=== PATIENT | female | born 1985 | race African-American/Black ===

== ENCOUNTER 2017-09-16 11:40 | Emergency (ER) | payer MEDICAID ==
[~2017-09-16] VITALS: Ht 157.5 cm; Wt 64.0 kg
[~2017-09-16 11:40] MED LIST: ALBUTEROL
[2017-09-16 11:43] VITALS: BP 149/92
[2017-09-16 12:37] LABS: BASOPHILS % 0.2 % (0.0-2.0); EOSINOPHILS % 0.1 % (0.0-5.0); LYMPHOCYTES % 14.4 % (20.0-50.0); MEAN CORPUSCULAR HEMOGLOBIN 28.5 pg (28.0-32.0); MEAN CORPUSCULAR VOLUME 87.5 fL (81.0-99.0); MEAN PLATELET VOLUME 7.6 fl (7.4-10.4); MONOCYTES % 3.7 % (2.0-8.0); NEUTROPHILS % 81.6 % (40.0-76.0); PLATELET 241 x1000/uL (130-400); RED BLOOD CELL COUNT 4.57 mill/uL (4.2-5.4); RED CELL DISTRIBUTION WIDTH 13.3 % (11.6-14.6)
[2017-09-16 12:45] LABS: INR 1.1; PROTHROMBIN TIME 11.4 sec (9.4-11.6)
[2017-09-16 12:47] LABS: CHLORIDE 108 mEq/L (98-107)
[2017-09-16 13:01] LABS: HCG SCREEN NEGATIVE
== END 2017-09-16 19:18 | disposition left against medical advice (07) ==
LOC: ER 12:42
DX: R10.2 Pelvic and perineal pain (principal); R11.2 Nausea with vomiting, unspecified; Z98.890 Other specified postprocedural states; Z98.51 Tubal ligation status
CPT/HCPCS: 36415; 80053; 83690; 84703; 85025; 85610; 99284

== ENCOUNTER 2018-09-15 10:13 | Emergency (ER) | payer MEDICAID ==
[~2018-09-15] VITALS: Ht 157.5 cm; Wt 98.0 kg
[2018-09-15 10:37] VITALS: BP 126/74
[2018-09-15] MEDS ORDERED: IPRATROPIUM BROMIDE (0.02%) 0.5MG/2.5ML NEB HHN STA (11:00)
[2018-09-15] MEDS ORDERED: ALBUTEROL (0.083%) 2.5MG/3ML NEB HHN STA (11:00)
[2018-09-15] MEDS ORDERED: IBUPROFEN 600MG TABLET PO ONE (13:15)
== END 2018-09-15 13:16 | disposition home or self-care (01) ==
LOC: ER 10:13
DX: J06.9 Acute upper respiratory infection, unspecified (principal); J45.909 Unspecified asthma, uncomplicated; Z98.51 Tubal ligation status; Z98.890 Other specified postprocedural states; Z88.8 Allergy status to other drugs, medicaments and biological substances
CPT/HCPCS: 71045; 81025; 94640; 99283; J7611